=== PATIENT | male | born 2000 | race Caucasian/White ===

== ENCOUNTER 2023-10-05 03:39 | Inpatient (IN) | payer MEDICAID, SELFPAY ==
[2023-10-05 03:40] VITALS: BP 113/78; PULSE 76; RESP 18; TEMP 36.6; O2SAT 97
[2023-10-05 03:41] VITALS: BMI 33.0
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
[2023-10-05 06:00] VITALS: BP 108/76; PULSE 74; RESP 16; O2SAT 96
--- NOTE | 2023-10-05 09:21 | PC.NURSE ---
RESTING IN BED, AROUSES TO VOICE. PT SPEECH IS DELAYED AND DIFFICULTY FINDING WORDS. DENIES SI/HI AND AVH AT THIS TIME. DENIES PAIN. RATES ANXIETY 0/10 AND DEPRESSION 2/10. PT IS EVASIVE WITH ASSESSMENT AND WITHDRAWN TO ROOM, NOTED TO ISOLATE. PT STATES GOAL FOR THE DAY IS TO CALL MY PARTNER. PT THEN ROLLED OVER AND STARTED TO REST AGAIN ALL QUESTIONS ANSWERED AND SUPPORT VOICED.
[2023-10-05 14:00] VITALS: BP 129/89; PULSE 84; RESP 16; TEMP 36.5; O2SAT 97
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
[2023-10-05 20:08] VITALS: BP 123/88; PULSE 96; RESP 16; TEMP 36.8; O2SAT 97
[2023-10-05 22:00] VITALS: BP 123/88; PULSE 96; RESP 16; TEMP 36.8; O2SAT 97
[2023-10-05] MEDS: lithium carbonate ER 300 mg Tablet PO (22:18)
[2023-10-05] MEDS: prazosin 1 mg Capsule PO (22:19)
[2023-10-05] MEDS: artificial tears Op Soln 15 mL Btl 1 DROP EYE-BOTH (23:24)
[2023-10-06 05:03] VITALS: BP 106/68; PULSE 80; RESP 16; TEMP 36.7; O2SAT 97
[2023-10-06] MEDS: lithium carbonate ER 300 mg Tablet PO ×2 (08:12→17:58)
--- NOTE | 2023-10-06 08:58 | PC.NURSE ---
PT IN BED RESTING AROUSES TO VOICE. DENIES PAIN. DENIES SI/HI AND AVH AT THIS TIME. PT WAS UP FOR BREAKFAST AND INTERACTING WITH PEERS. RATES ANXIETY AND DEPRESSION 0/10. PT STATES GOAL FOR THE DAY IS TO LEAVE AND GO TODAY. I HAVE TO WORK IN [place] THIS WEEKEND. PT WAS INFORMED THAT RN WOULD LET DR. ESCOBEDO KNOW AND THEN WILL UPDATE HIM AFTER THE MEETING. ALL QUESTIONS ANSWERED AND SUPPORT VOICED.
[2023-10-06 14:00] VITALS: BP 115/83; PULSE 112; RESP 18; TEMP 37; O2SAT 97
[2023-10-06] MEDS: prazosin 1 mg Capsule PO (20:50)
[2023-10-06 22:00] VITALS: BP 149/66; PULSE 122; RESP 20; O2SAT 96
[2023-10-07 06:00] VITALS: BP 126/85; PULSE 87; RESP 18; O2SAT 97
--- NOTE | 2023-10-07 06:36 | W.PM.NPUPNS ---
Subjective NPU Subjective: Patient presented today reporting that he is doing fine. Staff reports no signs of problematic behavior or concerns during the day which was noted on direct observation. Patient continues to report having a momentary lapse of judgment and we discussed his borderline personality disorder and the history of moments like this leading to hospitalizations throughout his life. We discussed the importance of him engaging in DBT and other cognitive behavioral therapies to try to get old wellness and he denied any problems with his medication being restarted and denied any side effects to the medication. We discussed the possibility of discharging tomorrow. Mental Status Exam MSE Comments: This is an obese white male in hospital scrubs with adequate grooming and eye contact. No abnormal movements except for mild psychomotor retardation. Cooperative with exam in no acute distress. Speech was mostly normal rate and volume. Mood described as much better, affect congruent. Thought process organized. Thought content: Patient denies suicidal or homicidal ideation, there were no delusions reported or noted, he denied any auditory or visual hallucinations. The patient expressed often having feelings of paranoia, specifically around their partner cheating on them. They also mentioned having intrusive thoughts and nightmares every night. They have been diagnosed with PTSD, borderline personality disorder, and high-functioning autism. The patient also mentioned feeling manic and having difficulty controlling their emotions. He is alert and oriented x 3. Insight and judgment are limited and impulse control is impaired. Vitals/I&O/Wt Last Vital Signs Temp 98.6 F 10/06/23 14:00 Pulse 87 10/07/23 06:00 Resp 18 10/07/23 06:00 BP 126/85 10/07/23 06:00 Pulse Ox 97 10/07/23 06:00 O2 Del Method Room Air 10/06/23 22:00 A&P Assessment and plan (1) PTSD (post-traumatic stress disorder): (2) Borderline personality disorder: (3) Depression: (4) Bereavement: Plan This is a 22-year-old male with long history of mental health and addiction issues as well as trauma and recent challenges with the significant loss of his in the past year. The patient has a complex history of mental health issues, substance abuse, and trauma. They have been diagnosed with PTSD, borderline personality disorder. They have a history of suicidal thoughts and have been hospitalized multiple times. The patient is currently off their medication and is seeking to get back on lithium and Prazosin. 1. Restart lithium ER 300 mg p.o. nightly and prazosin 1 mg p.o. nightly 2. Encourage individual, group and milieu therapy. 3. Continue every 15 minute checks for safety. 4. Evaluate for safety for discharge given 96-hour hold. Patient seeming to be more dealing with cluster B pathology than any true acute decompensation we discussed the likelihood of discharge tomorrow. 5. Encourage sober living treatment after discharge at the highest level of care to which she is willing to commit. Involuntary Hold Information 96 Hour Hold: 96 Hour Involuntary Admission: No Attestations NPU Medical Necessity Statement*: Inpatient psychiatric hospitalization is medically necessary and the clinically appropriate intervention at this time. We will monitor medications and make changes as indicated. Likely length of stay 1 day. Coding Level of Care Code Acute Code for g Fwd Diagnoses PTSD (post-traumatic stress disorder) F43.10 Borderline personality disorder F60.3 Depression F32.A Bereavement Z63.4
[2023-10-07] MEDS: lithium carbonate ER 300 mg Tablet PO (08:03)
--- NOTE | 2023-10-07 09:49 | P.NPUDS_ITS ---
Diagnoses at Discharge Discharge Diagnosis (1) PTSD (post-traumatic stress disorder): Status: Acute (2) Borderline personality disorder: Status: Acute (3) Depression: Status: Acute (4) Bereavement: Status: Acute Involuntary Hold Information 96 Hour Hold: 96 Hour Involuntary Admission: No Mental Status Exam MSE Comments: This is an obese white male in hospital scrubs with adequate grooming and eye contact. No abnormal movements except for mild psychomotor retardation. Cooperative with exam in no acute distress. Speech was mostly normal rate and volume. Mood described as much better, affect congruent. Thought process organized. Thought content: Patient denies suicidal or homicidal ideation, there were no delusions reported or noted, he denied any auditory or visual hallucinations. The patient expressed often having feelings of paranoia, specifically around their partner cheating on them. They also mentioned having intrusive thoughts and nightmares every night. They have been diagnosed with PTSD, borderline personality disorder, and high-functioning autism. The patient also mentioned feeling manic and having difficulty controlling their emotions. He is alert and oriented x 3. Insight and judgment are limited and impulse control is impaired. Discharge Data Vitals: Last Vital Signs Temp 98.6 F 10/06/23 14:00 Pulse 87 10/07/23 06:00 Resp 18 10/07/23 06:00 BP 126/85 10/07/23 06:00 Pulse Ox 97 10/07/23 06:00 O2 Del Method Room Air 10/06/23 22:00 Discharge Plan Discharge Prescriptions: New prazosin 1 mg Capsule 1 mg PO BEDTIME 30 Days Qty: 30 1RF lithium carbonate 300 mg Tablet Extended Release 300 mg PO BID 30 Days Qty: 60 1RF Discharge Orders: Discharge Order (Routine); Ordered 10/07/23 Ordered By: Js Denson Discharge Diet: Regular Discharge Activity: Resume usual activity Patient Instructions: Opioid Safety Discharge Attestations NPU Time Spent in Discharge Care*: less than 30 min Specific Discharge Activities: Specific discharge activities: educating patient, discussing with embedded case manager/social workers/dc planners, documenting/other paperwork and evaluating patient/reviewing data Coding Level of Care Code Acute Code for Chg Fwd Diagnoses PTSD (post-traumatic stress disorder) F43.10 Borderline personality disorder F60.3 Depression F32.A Bereavement Z63.4
[2023-10-07 09:51] VITALS: BP 126/85; PULSE 87; RESP 18; O2SAT 97
[2023-10-07 14:00] VITALS: BP 106/71; PULSE 85; RESP 16; TEMP 36.8; O2SAT 93
== END 2023-10-07 14:20 | disposition home or self-care (01) | DRG 882 ==
PROVIDERS: Admitting Provider Psychiatry & Neurology Psychiatry; Visit Provider Psychiatry & Neurology Psychiatry
DX: F43.10 Post-traumatic stress disorder, unspecified (principal); F32.A Depression, unspecified; F60.3 Borderline personality disorder; Z91.51 Personal history of suicidal behavior; F10.21 Alcohol dependence, in remission; F17.210 Nicotine dependence, cigarettes, uncomplicated; F12.10 Cannabis abuse, uncomplicated; F84.0 Autistic disorder; Z63.4 Disappearance and death of family member
CPT/HCPCS: 97150; 97165